=== PATIENT | male | born 1965 | race Caucasian/White ===

== ENCOUNTER 2021-11-29 09:39 | Emergency (ER) | payer OTHER ==
[2021-11-29 09:56] VITALS: RESP 20; TEMP 98
--- NOTE | 2021-11-29 10:56 | XR ---
EXAMINATION TYPE: XR sacrum coccyx DATE OF EXAM: 11/29/2021 COMPARISON: NONE HISTORY: Pain Three views are submitted. Sacrum is intact. SI joints are symmetric. Coccyx appears to be intact. Visualized pelvic structures intact. Hypertrophic and degenerative changes lower lumbar spine. 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 Spina bifida occul ta of the coccyx. There appears to be anterior displacement of the distal segment of the coccyx. Disl ocated segments suggested. Of indeterminate age. Calcifications in the pelvis likely vascular. Osteit is pubis symphysis. IMPRESSION: 1. Distal segment of the coccyx appears anteriorly displaced relative to the proximal segment. Could represent a dislocation of indeterminate age, correlate clinically 2..Moderate to severe hypertrophic degenerative change of the lower lumbar spine with facet arthropat hy.
--- NOTE | 2021-11-29 10:56 | XR ---
EXAMINATION TYPE: XR thoracic spine 2V DATE OF EXAM: 11/29/2021 COMPARISON: NONE HISTORY: Pain TECHNIQUE: 3 views submitted FINDINGS: Alignment is anatomic. There is no compression deformities. Multilevel hypertrophic and degenerative changes of thoracic spine. IMPRESSION: 1. Multilevel moderate to severe hypertrophic degenerative change of the spine.
--- NOTE | 2021-11-29 11:02 | XR ---
EXAM TYPE: LUMBAR SPINE X RAY SERIES COMPARISON: NONE HISTORY: Pain TECHNIQUE: 3 views are submitted. FINDINGS: Alignment is anatomic. The pedicles are intact. The transverse processes are intact. There is no s pondylolisthesis. Multilevel hypertrophic spurring and degenerative disc disease most pronounced at L 4-5 and L5-S1 with facet arthropathy IMPRESSION: 1. Multilevel hypertrophic and degenerative changes.
[2021-11-29] MEDS ORDERED: ACET/COD 300 MG/30 MG STARTER PACK 6 TAB BTL PO STA (12:07)
--- NOTE | 2021-11-29 12:11 | ED ---
Fall HPI - General Chief Complaint: Fall Stated Complaint: fall - [facility] Time Seen by Provider: 11/29/21 10:07 Source: patient, RN notes reviewed Mode of arrival: ambulatory - History of Present Illness Initial Comments: This is a 56-year-old male who presents to the emergency department for lower back pain after a fall. 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 The pain is localized to the right lower back. He has not yet taken anything for the pain. He is able to ambulate at this time. Denies any loss of bowel or bladder control or saddle anesthesia. He did not hit his head, have any loss of consciousness, or symptoms such as dizziness before the fall. Denies any fevers, chills, sore throat, cough, dyspnea, chest pain, palpitations, abdominal pain, nausea, vomiting, diarrhea, or headaches. MD Complaint: fall Place Fall Occurred: work Loss of Consciousness: none Prolonged Down Time?: no Symptoms Prior to Fall: none Location: back Context: tripped/slipped Associated Symptoms: denies - Related Data Home Medications Medication Instructions Recorded Confirmed Olmesartan [Benicar] 10 mg PO DAILY 11/17/14 11/17/14 metFORMIN HCL [Glucophage] 1,000 mg PO BID 11/17/14 11/17/14 Previous Rx's Medication Instructions Recorded Ibuprofen 800 mg PO Q8H PRN #20 tab 11/29/21 Allergies Allergy/AdvReac Type Severity Reaction Status Date / Time No Known Allergies Allergy Verified 11/29/21 09:55 Review of Systems ROS Statement: Those systems with pertinent positive or pertinent negative responses have been documented in the HPI. ROS Other: All systems not noted in ROS Statement are negative. Past Medical History Past Medical History: Diabetes Mellitus, Hypertension History of Any Multi-Drug Resistant Organisms: None Reported Past Surgical History: Appendectomy, Orthopedic Surgery Additional Past Surgical History / Comment(s): ROTATOR CUFF REPAIR Past Psychological History: No Psychological Hx Reported Smoking Status: Never smoker Past Alcohol Use History: Occasional Past Drug Use History: None Reported General Exam Limitations: no limitations General appearance: alert, in no apparent distress Head exam: Present: atraumatic, normocephalic, normal inspection Respiratory exam: Present: normal lung sounds bilaterally. Absent: respiratory distress, wheezes, rales, rhonchi, stridor Cardiovascular Exam: Present: regular rate, normal rhythm, normal heart sounds. Absent: systolic murmur, diastolic murmur, rubs, gallop, clicks Extremities exam: Present: normal inspection, full ROM. Absent: tenderness Neurological exam: Present: alert, oriented X3, CN II-XII intact Psychiatric exam: Present: normal affect, normal mood Skin exam: Present: warm, dry, intact, normal color. Absent: rash Course Vital Signs 11/29/21 11/29/21 09:53 12:17 Temperature 98 F Pulse Rate 97 78 Respiratory 20 20 Rate Blood Pressure 121/74 132/78 O2 Sat by Pulse 99 99 Oximetry Medical Decision Making - Medical Decision Making This is a 56-year-old male who presents to the emergency department for low back pain after a fall. X-rays of the thoracic and lumbar region revealed no acute process. X-ray of the coccyx reveals possible anterior displacement of the distal segment, suggestive of a dislocation of undetermined age. This was discussed with the patient, and he has no pain in that location. He is unsure if he has had any previous injuries to the coccygeal area, but states that it is very possible. There are no obvious deformities on physical exam and the patient has full range of motion. Prescription for ibuprofen was provided. Instructed him to take this with Tylenol for additional relief. Advised to apply ice for the first 2-3 days followed by heat there afterwards and to alternate with ibuprofen and Tylenol as needed for pain relief. Return precautions reviewed in depth, the patient is instructed to return to the emergency department with any new, worsening, or concerning symptoms. Patient verbalized understanding. This case was discussed in detail with the attending ED physician. Presentation, findings, and treatment plan discussed in detail as well. - Radiology Data Radiology results: report reviewed, image reviewed Disposition Clinical Impression: Back pain Disposition: HOME SELF-CARE Instructions (If sedation given, give patient instructions): Back Pain (ED) Additional Instructions: Return to the emergency department with any new, worsening, or concerning symptoms. Apply ice to the back for the first 2-3 days followed by heat there afterwards. Take ibuprofen and Tylenol as needed for pain relief. Take the Tylenol #3 at night until you know how it affects you as it may be sedating. Prescriptions: Ibuprofen 800 mg PO Q8H PRN #20 tab PRN Reason: Pain Is patient prescribed a controlled substance at d/c from ED?: No Referrals: Satnam Arce MD [Primary Care Provider] - 1-2 days
[2021-11-29 12:18] VITALS: BP 132/78; PULSE 78
== END 2021-11-29 12:19 | disposition home or self-care (01) ==
LOC: EC 09:39
DX: M54.50 Low back pain, unspecified (principal); E11.9 Type 2 diabetes mellitus without complications; I10 Essential (primary) hypertension; Z79.84 Long term (current) use of oral hypoglycemic drugs; Z79.899 Other long term (current) drug therapy; W01.0XXA Fall on same level from slipping, tripping and stumbling without subsequent striking against object, initial encounter; Y92.69 Other specified industrial and construction area as the place of occurrence of the external cause; Y99.0 Civilian activity done for income or pay
CPT/HCPCS: 72070; 72100; 72220; 99283

== ENCOUNTER 2023-05-01 08:20 | Day surgery (SDC) | payer OTHER ==
[2023-05-01] MEDS: LACTATED RINGERS 1,000 ML IV SCH (08:31)
[2023-05-01 08:50] LABS: Glucose,Whole Blood 122 mg/dL (70-110)
[2023-05-01 09:00] VITALS: TEMP 97.3
[2023-05-01] MEDS ORDERED: LIDOCAINE 1% INJ 10MG/ML (20 ML MDV) ONE (09:24)
[2023-05-01] MEDS ORDERED: PROPOFOL 10 MG/ML 20 ML VIAL IV ONE (09:24)
--- NOTE | 2023-05-01 09:43 | P.PCN ---
Date of Procedure: 05/01/23 Procedure(s) Performed: BRIEF HISTORY: Patient is a 58-year-old pleasant white male scheduled for an elective colonoscopy as a part of screening for colon cancer. PROCEDURE PERFORMED: Colonoscopy. PREOPERATIVE DIAGNOSIS: Screening for colon cancer. IV sedation per Anesthesia. PROCEDURE: After informed consent was obtained, the patient, was brought into the endoscopy unit. IV sedation was administered by Anesthesia under continuous monitoring. Digital rectal examination was normal. Initially the Olympus CF-160 flexible video colonoscope was then inserted in the rectum, gradually advanced into the cecum without any difficulty. Careful examination was performed as the scope was gradually being withdrawn. Ileocecal valve and the appendiceal orifice were visualized and appeared normal. Prep was excellent. Mucosa of the cecum, ascending colon, transverse colon, descending colon, sigmoid colon, and rectum appeared normal. Retroflexion was performed in the rectum and small internal hemorrhoids were seen. The patient tolerated the procedure well. IMPRESSION: Normal-appearing colon from rectum to cecum with no evidence of colorectal neoplasia. . Small internal hemorrhoids RECOMMENDATIONS: Findings of this examination were discussed with the patient as well as his family. He was advised to have a repeat screening colonoscopy in 10 years
[2023-05-01 10:03] VITALS: BP 147/88; PULSE 75; RESP 16
== END 2023-05-01 10:17 | disposition home or self-care (01) ==
LOC: ORWHC2ENDO 08:20
PROVIDERS: ATTEND Internal Medicine Gastroenterology
DX: Z12.11 Encounter for screening for malignant neoplasm of colon (principal); K64.8 Other hemorrhoids; I10 Essential (primary) hypertension; E11.9 Type 2 diabetes mellitus without complications; Z90.49 Acquired absence of other specified parts of digestive tract; Z79.899 Other long term (current) drug therapy
CPT/HCPCS: 45378; J2001; J2704

== ENCOUNTER 2024-07-12 18:06 | Emergency (ER) | payer OTHER ==
[2024-07-12 18:27] VITALS: RESP 18
--- NOTE | 2024-07-12 19:36 | ED ---
Wound/Laceration HPI - General Source: patient, RN notes reviewed Mode of arrival: ambulatory Limitations: no limitations - History of Present Illness Time: 17:50 <Maxx Klein - Last Filed: 07/12/24 19:35> <Ramandeep Tubbs - Last Filed: 07/12/24 21:03> - General Chief Complaint: Wound/Laceration Stated Complaint: L hand laceration Time Seen by Provider: 07/12/24 18:25 - History of Present Illness Initial Comments: Quick note: This is a 59-year-old male presenting for left hand laceration occurring at 1750 today. Patient states he was working with a machine grinder when it "kicked back" on him, causing the laceration. Patient states he is unsure of tetanus vaccination status. (Maxx Klein) 59-year-old male presents to the emergency department for evaluation of left hand laceration. Patient states that he was working with a machine grinder when it kicked back and cut his hand. He states that he is able to move his hand no limitation. He has normal sensation. Unsure when he last had a tetanus vaccine. He is not on blood thinners. (Ramandeep Tubbs) - Related Data Home Medications Medication Instructions Recorded Confirmed metFORMIN HCL [Glucophage] 1,000 mg PO BID 11/17/14 05/01/23 Dapagliflozin Propanediol [Farxiga] 10 mg PO DAILY 04/28/23 05/01/23 Irbesartan 300 mg PO DAILY 04/28/23 04/28/23 Semaglutide [Ozempic] 2 mg SQ ENGEL 04/28/23 05/01/23 amLODIPine 10 mg PO DAILY 04/28/23 04/28/23 tadalafiL 20 mg PO DAILY PRN 04/28/23 05/01/23 Previous Rx's Medication Instructions Recorded Cephalexin [Keflex] 500 mg PO Q6HR #28 cap 07/12/24 Allergies Allergy/AdvReac Type Severity Reaction Status Date / Time No Known Allergies Allergy Verified 07/12/24 18:28 Review of Systems ROS Other: All systems not noted in ROS Statement are negative. <Maxx Klein - Last Filed: 07/12/24 19:35> ROS Other: All systems not noted in ROS Statement are negative. <Ramandeep Tubbs - Last Filed: 07/12/24 21:03> ROS Statement: Those systems with pertinent positive or pertinent negative responses have been documented in the HPI. Past Medical History Past Medical History: Diabetes Mellitus, Hypertension History of Any Multi-Drug Resistant Organisms: None Reported Past Surgical History: Appendectomy, Orthopedic Surgery Additional Past Surgical History / Comment(s): ROTATOR CUFF REPAIR finger surgery Past Anesthesia/Blood Transfusion Reactions: No Reported Reaction Past Psychological History: No Psychological Hx Reported Smoking Status: Never smoker Past Alcohol Use History: Occasional Past Drug Use History: None Reported - Past Family History Father Family Medical History: No Reported History <Maxx Klein - Last Filed: 07/12/24 19:35> General Exam Limitations: no limitations <Maxx Klein - Last Filed: 07/12/24 19:35> Limitations: no limitations General appearance: alert, in no apparent distress Head exam: Present: atraumatic, normocephalic, normal inspection Eye exam: Present: normal appearance, PERRL, EOMI. Absent: scleral icterus, conjunctival injection, periorbital swelling Extremities exam: Present: full ROM, normal capillary refill, other (3 cm laceration overlying the distal second metacarpal of the left hand, normal capillary refill, radial pulses 2+). Absent: tenderness, pedal edema, joint swelling, calf tenderness Neurological exam: Present: alert, oriented X3 Psychiatric exam: Present: normal affect, normal mood Skin exam: Present: warm, dry, normal color, other (See above). Absent: intact, rash <Ramandeep Tubbs - Last Filed: 07/12/24 21:03> - General Exam Comments Initial Comments: Visual Physical Exam Vital signs reviewed General: Well-appearing, nontoxic, no acute distress. Head: Normocephalic, atraumatic Eyes: PERRLA, EOMI ENT: Airway patent Chest: Nonlabored breathing Skin: No visual rash, normal skin tone Neuro: Alert and oriented 3 Musculoskeletal: Significant vertical laceration between 2nd and 3rd digits of dorsal left hand (ErnieMaxx) Course Vital Signs 07/12/24 18:23 Temperature 98.0 F Pulse Rate 88 Respiratory 18 Rate Blood Pressure 166/85 O2 Sat by Pulse 96 Oximetry Procedures - Laceration Laceration #1 Consent Obtained: verbal consent Indication: laceration Site: hand Size (cm): 3 Description: linear Depth: simple, single layer Anesthetic Used: lidocaine 1% Anesthesia Technique: local infiltration Amount (mls): 4 Pre-repair: wound explored, irrigated extensively Type of Sutures: other Size of Sutures: 4-0 Number of Sutures: 6 Technique: simple, interrupted Patient Tolerated Procedure: well, no complications <Ramandeep Tubbs - Last Filed: 07/12/24 21:03> Medical Decision Making <Maxx Klein - Last Filed: 07/12/24 19:35> <Ramandeep Tubsb - Last Filed: 07/12/24 21:03> - Medical Decision Making I completed the quick note portion of this chart signed JAI Katz (Maxx Klein) Was pt. sent in by a medical professional or institution ([facility], ASSISTANT OFFICE MANAGER, urgent care, hospital, or half-way...) When possible be specific @ -No Did you speak to anyone other than the patient for history (EMS, parent, family, police, friend...)? What history was obtained from this source @ -No Did you review nursing and triage notes (agree or disagree)? Why? @ -I reviewed and agree with nursing and triage notes Were old charts reviewed (outside hosp., previous admission, EMS record, old EKG, old radiological studies, urgent care reports/EKG's, half-way records)? Report findings @ -No old charts were reviewed Differential Diagnosis (chest pain, altered mental status, abdominal pain women, abdominal pain men, vaginal bleeding, weakness, fever, dyspnea, syncope, headache, dizziness, GI bleed, back pain, seizure, CVA, palpatations, mental health, musculoskeletal)? @ -Laceration, abrasion, fracture, foreign body, this this is not all-inclusive EKG interpreted by me (3pts min.). @ -None X-rays interpreted by me (1pt min.). @ -None done CT interpreted by me (1pt min.). @ -None done U/S interpreted by me (1pt. min.). @ -None done What testing was considered but not performed or refused? (CT, X-rays, U/S, labs)? Why? @ -X-rays considered, I was able to obtain good visualization and therefore felt that it was not necessary, the patient was offered What meds were considered but not given or refused? Why? @ -None Did you discuss the management of the patient with other professionals (professionals i.e. , PA, ASSISTANT OFFICE MANAGER, lab, RT, psych nurse, social services manager, singing telegram performer, teacher, correction officer penitentiary, shoe parts caser)? Give summary @ -No Was smoking cessation discussed for >3mins.? @ -No Was critical care preformed (if so, how long)? @ -No Were there social determinants of health that impacted care today? How? (Homelessness, low income, unemployed, alcoholism, drug addiction, transportation, low edu. Level, literacy, decrease access to med. care, detention, rehab)? @ -No Was there de-escalation of care discussed even if they declined (Discuss DNR or withdrawal of care, Hospice)? DNR status @ -No What co-morbidities impacted this encounter? (DM, HTN, Smoking, COPD, CAD, Cancer, CVA, ARF, Chemo, Hep., AIDS, mental health diagnosis, sleep apnea, morbid obesity)? @ -None Was patient admitted / discharged? Hospital course, mention meds given and route, prescriptions, significant lab abnormalities, going to OR and other pertinent info. @ -Discharge. Patient presented to the emergency department for evaluation of hand laceration. The wound was soaked in iodine and saline prior to my evaluation. I then cleaned the wound with sterile water. The wound was repaired. The patient was instructed on wound care and suture removal time. Patient is understanding agreeable with plan. Patient stable at time of discharge. Case discussed with Dr. Reddy Undiagnosed new problem with uncertain prognosis? @ -No Drug Therapy requiring intensive monitoring for toxicity (Heparin, Nitro, Insulin, Cardizem)? @ -No Were any procedures done? @ -Laceration repair Diagnosis/symptom? @ -Laceration Acute, or Chronic, or Acute on Chronic? @ -Acute Uncomplicated (without systemic symptoms) or Complicated (systemic symptoms)? @ -Uncomplicated Side effects of treatment? @ -No Exacerbation, Progression, or Severe Exacerbation? @ -No Poses a threat to life or bodily function? How? (Chest pain, [place], [place], pneumonia, PE, COPD, DKA, ARF, appy, cholecystitis, CVA, Diverticulitis, Homicidal, Suicidal, threat to staff... and all critical care pts) @ -No (Ramandeep Tubbs) Disposition <Maxx Klein - Last Filed: 07/12/24 19:35> Is patient prescribed a controlled substance at d/c from ED?: No <Ramandeep Tubbs - Last Filed: 07/12/24 21:03> Clinical Impression: Laceration Disposition: HOME SELF-CARE Condition: Stable Instructions (If sedation given, give patient instructions): Care For Your St itches (ED) Additional Instructions: Please keep the wound clean and dry. Have sutures removed in 7 to 10 days. Follow-up with your primary care provider. Return to the emergency department for new or worsening symptoms. Prescriptions: Cephalexin [Keflex] 500 mg PO Q6HR #28 cap Referrals: Mechelle Noel DO [Primary Care Provider] - 1-2 days
[2024-07-12] MEDS: DIPH,PERTUS(ACELL)TETVAC-LF 0.5 ML VIAL IM ONE (20:14)
[2024-07-12] MEDS: LIDOCAINE 1% INJ 10MG/ML (20 ML MDV) SQ ONE (20:14)
[2024-07-12 21:01] VITALS: BP 145/79; PULSE 78; TEMP 98.2
== END 2024-07-12 21:01 | disposition home or self-care (01) ==
LOC: EC 18:06
DX: S61.412A Laceration without foreign body of left hand, initial encounter (principal); Z23 Encounter for immunization; W29.0XXA Contact with powered kitchen appliance, initial encounter
CPT/HCPCS: 90715; 99282; 12002; 90471; J2003